=== PATIENT | male | born 1995 ===

== ENCOUNTER 2019-06-08 18:07 | Emergency (ER) | payer SELFPAY ==
[~2019-06-08] VITALS: Ht 177.8 cm; Wt 100.0 kg
[2019-06-08 20:34] VITALS: BP 132/81
[2019-06-08] MEDS ORDERED: IBUPROFEN 600 MG TABLET PO ONE (20:45)
[2019-06-08] MEDS ORDERED: ACETAMINOPHEN/CODEINE 300-30 MG TABLET PO ONE (20:45)
== END 2019-06-08 20:57 | disposition home or self-care (01) ==
LOC: EMS 18:08
DX: S63.286A Dislocation of proximal interphalangeal joint of right little finger, initial encounter (principal); W21.02XA Struck by soccer ball, initial encounter; Y93.66 Activity, soccer; Y92.89 Other specified places as the place of occurrence of the external cause; Y99.8 Other external cause status
CPT/HCPCS: 26770